=== PATIENT | male | born 1995 | race Caucasian/White ===

== ENCOUNTER 2020-06-09 16:45 | Emergency (ER) | payer OTHER ==
[2020-06-09 16:50] VITALS: BP 125/89
[2020-06-09] MEDS ORDERED: KETOROLAC TROMETHAMINE 60 MG/2 ML SDV IM ONE (17:13)
--- NOTE | 2020-06-09 17:21 | ER Document Report ---
ED Extremity Problem, Upper - General Chief Complaint: Shoulder Pain Stated Complaint: BACK,SHOULDER PAIN Time Seen by Provider: 06/09/20 16:56 Primary Care Provider: [facility] [Provider Group] - Follow up as needed - HPI Notes: Patient is a 25 y/o male with hx of chronic back pain who presents for left shoulder pain. Patient states he had a left SLAP repair and bicep tenodesis done in December 2017. He states he post-op MRI showed a re-tear and nothing further was done. Three days ago, patient was at work, climbing out of an attic when his left shoulder caught. It made a "popping" noise and he felt immediate pain. He denies numbness or tingling to the left arm. He also endorses chronic back pain that has been ongoing for the past two years. He takes ibuprofen and tylenol with no relief. He denies saddle parasthesia, urinary and bowel incontinence, numbness or tingling of his legs. Patient is seen at the [facility] but does not currently have a PCP as they have no availability. He is trying to get an appointment with a PCP out in town sometime this week. - Related Data Allergies/Adverse Reactions: No Known Allergies Allergy (Unverified 06/09/20 16:55) Past Medical History - General Information source: Patient - Social History Smoking Status: Unknown if Ever Smoked Family History: Reviewed & Not Pertinent Past Surgical History: Reports: Hx Orthopedic Surgery Review of Systems - Review of Systems Constitutional: No symptoms reported EENT: No symptoms reported Cardiovascular: No symptoms reported Respiratory: No symptoms reported Gastrointestinal: No symptoms reported Genitourinary: No symptoms reported Male Genitourinary: No symptoms reported Musculoskeletal: See HPI Skin: No symptoms reported Hematologic/Lymphatic: No symptoms reported Neurological/Psychological: No symptoms reported Physical Exam - Vital signs Vitals: Temp Pulse Resp BP Pulse Ox 99.1 F 66 20 125/89 H 98 06/09/20 16:49 06/09/20 16:49 06/09/20 16:49 06/09/20 16:49 06/09/20 16:49 - Notes Notes: PHYSICAL EXAMINATION: GENERAL: Well-appearing, well-nourished and in no acute distress. HEAD: Atraumatic, normocephalic. EYES: sclera anicteric, conjunctiva are normal. ENT: Moist mucous membranes. NECK: Normal range of motion LUNGS: Normal work of breathing. HEART: 2+ radial pulses bilaterally EXTREMITIES: Left shoulder: limited ROM secondary to pain, nontender. Palpable radial pulse. Left shoulder 4/5 strength, left elbow and wrist 5/5 strength. No pitting or edema. No cyanosis. BACK: 5 out of 5 strength both distally and proximally bilateral lower extremities. 2+ patellar reflexes bilaterally. No clonus. Sensation grossly intact in the bilateral lower extremities. Patient is able to ambulate without difficulty. NEUROLOGICAL: No focal neurological deficits. Moves all extremities spontaneously and on command. PSYCH: Normal mood, normal affect. SKIN: Warm, Dry, normal turgor, no rashes or lesions noted. Course - Re-evaluation Re-evalutation: Patient is a 25 y/o male with a hx of chronic back pain who presents for left shoulder pain and back pain. Patient is concerned he may have reinjured his left shoulder while at work. On exam, No point tenderness over vertebral bodies. 60mg IM toradol given here in the ED. Presentation of a well appearing patient complaining of left shoulder pain and acute on chronic back pain. No rapid progression of symptoms, systemic symptoms including fevers, chills, weight loss, history of recent bacterial infection, bilateral symptoms, numbness, weakness, difficulty walking, urinary retention or bowel incontinence, personal history of cancer, immunosuppression, diabetes, known AAA, or history of IV drug use. Exam is without point tenderness over vertebral bodies, pulsatile abdominal mass, and patient has symmetric and intact lower extremity strength, sensation, and reflexes without clonus. 2+ symmetric medial malleolar and dorsalis pedis pulses. Limited range of motion of the left shoulder secondary to pain, however, it is nontender. Based on history and physical, I have a very low suspicion of a concerning etiology of pain including epidural compression syndrome, spinal infection, transverse myelitis, malignancy, abdominal aortic aneurysm, renal colic, acute lower extremity claudication, neurogenic claudication, ankylosing spondylitis, or other intra-abdominal process. Due to absence of concerning risk factors in history and physical as well as absence of rapidly progressive, severe, or bilateral symptoms, will defer imaging at this point for his back. Left shoulder XR shows no radiographic evidence for acute fracture or dislocation at the left shoulder. 1 cm tubular shaped radiopaque density at the proximal left humerus, may be secondary to prior surgery or radiopaque foreign body. These findings are consistent with his prior SLAP repair and bicep tenodesis. Patient will be managed conservatively. Plan to discharge patient home with a prescription for flexeril and a off-work note. Discussed the importance of following up with primary care and possibly getting an ortho referral for repeat MRI of his left shoulder. Patient instructed to take tylenol and ibuprofen as needed for pain but not to exceed the max doses as written on the bottles. Return precautions given. Patient understands and is in agreement with the plan. - Vital Signs Vital signs: Temp Pulse Resp BP Pulse Ox 99.1 F 66 20 125/89 H 98 06/09/20 16:49 06/09/20 16:49 06/09/20 16:49 06/09/20 16:49 06/09/20 16:49 - Diagnostic Test Radiology reviewed: Image reviewed, Reports reviewed Radiology results interpreted by me: Shoulder X-Ray 06/09/20 17:12 IMPRESSION: No radiographic evidence for acute fracture or dislocation at the left shoulder. 1 cm tubular shaped radiopaque density at the proximal left humerus, may be secondary to prior surgery or radiopaque foreign body. Please correlate with clinical history/direct visualization. Discharge - Discharge Clinical Impression: Left shoulder pain Qualifiers: Chronicity: chronic Qualified Code(s): M25.512 - Pain in left shoulder Low back pain Qualifiers: Chronicity: chronic Back pain laterality: right Sciatica presence: without sciatica Qualified Code(s): M54.5 - Low back pain Condition: Stable Disposition: HOME, SELF-CARE Additional Instructions: Follow up with your primary care for you left shoulder pain and chronic back pain. Take flexeril as prescribed. Take ibuprofen and tylenol as needed for pain. You should alternate with 650mg of tylenol and 600mg of ibuprofen every three hours, follow the directions on the bottle. Back Pain You have been seen in the Emergency Department (ED) today for back pain. Your workup and exam have not shown any acute abnormalities and you are likely suffering from muscle strain or possible problems with your discs, but there is no treatment that will fix your symptoms at this time. Please take the flexeril that has been prescribed as directed. You should also purchase a local lidocaine cream such as "aspercreme with lidocaine" and use per bottle instructions to the affected area. Apply heat to the area as often as you are able. Continue to keep active and avoid prolonged periods of bed rest. Please follow up with your doctor as soon as possible regarding today's ED visit and your back pain. Return to the ED for worsening back pain, fever, weakness or numbness of either leg, or if you develop either (1) an inability to urinate or have bowel movements, or (2) loss of your ability to control your bathroom functions (if you start having "accidents"), or if you develop other new symptoms that concern you.concern you. Prescriptions: Cyclobenzaprine HCl [Flexeril 10 mg Tablet] 10 mg PO TID PRN #15 tablet PRN Reason: Forms: Return to Work Referrals: [facility] [Provider Group] - Follow up as needed
--- NOTE | 2020-06-09 17:39 | RADIOLOGY REPORT (SQ) ---
EXAM DESCRIPTION: SHOULDER LEFT 2 OR MORE VIEWS IMAGES COMPLETED DATE/TIME: 06/09/2020 5:25 pm REASON FOR STUDY: shoulder pain COMPARISON: None. NUMBER OF VIEWS: Three views. TECHNIQUE: Internal rotation, external rotation, and Y view images acquired of the left shoulder. LIMITATIONS: None. FINDINGS: MINERALIZATION: Normal. BONES: No acute fracture. There is a 1 cm tubular shaped radiopaque density at the proximal left hum erus. JOINTS: No dislocation. VISUALIZED LUNGS AND RIBS: No pneumothorax. No displaced rib fracture. SOFT TISSUES: No significant soft tissue swelling is identified. IMPRESSION: No radiographic evidence for acute fracture or dislocation at the left shoulder. 1 cm tubular shaped radiopaque density at the proximal left humerus, may be secondary to prior surger y or radiopaque foreign body. Please correlate with clinical history/direct visualization. TECHNICAL DOCUMENTATION: JOB ID: [id number] [employer]- All Rights Reserved Reading location - IP/workstation name: [email or web address]
== END 2020-06-09 18:04 | disposition home or self-care (01) ==
LOC: ER 16:45
DX: M25.512 Pain in left shoulder (principal); M54.5 Low back pain; G89.29 Other chronic pain; M54.9 Dorsalgia, unspecified
CPT/HCPCS: 99284; 96372; 73030; J1885